=== PATIENT | female | born 1960 | race Caucasian/White ===

== ENCOUNTER 2023-07-11 11:11 | Emergency (ER) | payer OTHER ==
[~2023-07-11] VITALS: Ht 162.6 cm; Wt 53.1 kg
[2023-07-11] MEDS ORDERED: KETOROLAC TROMETHAMINE INJ 30 MG/ML VIAL ONE (11:42)
[2023-07-11] MEDS ORDERED: KETOROLAC TROMETHAMINE INJ 60 MG/2 ML VIAL IM ONE (12:00)
[2023-07-11 13:14] VITALS: BP 141/70; TEMP 98; O2SAT 98
== END 2023-07-11 13:14 | disposition home or self-care (01) ==
LOC: ER 11:18
DX: M25.552 Pain in left hip (principal); M25.551 Pain in right hip; J45.909 Unspecified asthma, uncomplicated; Z98.890 Other specified postprocedural states; Z88.2 Allergy status to sulfonamides; Z88.5 Allergy status to narcotic agent; Z88.1 Allergy status to other antibiotic agents
CPT/HCPCS: 99285; 72192; 96372; J1885

== ENCOUNTER 2023-09-21 10:04 | Emergency (ER) | payer OTHER ==
[~2023-09-21] VITALS: Ht 162.6 cm; Wt 56.7 kg
[2023-09-21] MEDS ORDERED: GABA600T12 PO (12:19)
[2023-09-21] MEDS ORDERED: LEVA15HF4 IH (12:19)
[2023-09-21] MEDS ORDERED: DULO60CA45 PO (12:19)
[2023-09-21] MEDS ORDERED: FLUT100D IH (12:19)
[2023-09-21] MEDS ORDERED: ARIP5TAB10 PO (12:19)
[2023-09-21] MEDS ORDERED: HYDR-500 PO (12:19)
[2023-09-21] MEDS ORDERED: QUET50TA PO (12:19)
[2023-09-21] MEDS ORDERED: PAXLOVID PO (12:19)
[2023-09-21] MEDS ORDERED: GABA300C PO (12:19)
[2023-09-21] MEDS ORDERED: TRAM50TA2 PO (12:19)
[2023-09-21 12:33] LABS: BASOPHILS # (AUTO) 0.1 K/uL (0.0-0.2); BASOPHILS % (AUTO) 0.4 % (0.0-2.0); EOSINOPHILS # (AUTO) 0.1 K/uL (0.0-0.7); EOSINOPHILS % (AUTO) 0.8 % (0.0-6.0); HEMATOCRIT 40 % (33-45); HEMOGLOBIN 13.2 g/dL (11.5-14.8); LYMPHOCYTES # (AUTO) 1.1 K/uL (0.8-4.8); LYMPHOCYTES % (AUTO) 9.4 % (20.0-44.0); MEAN CORPUSCULAR HEMOGLOBIN 29 PG (26.0-33.0); MEAN CORPUSCULAR HGB CONC 33 g/dl (31.0-36.0); MEAN CORPUSCULAR VOLUME 89 fL (82-100); MONOCYTES # (AUTO) 0.7 K/uL (0.1-1.30); MONOCYTES % (AUTO) 5.6 % (2.0-12.0); NEUTROPHILS # (AUTO) 9.8 K/uL (1.8-8.9); NEUTROPHILS % (AUTO) 83.8 % (43.0-81.0); PLATELET COUNT (AUTO) 462 K/uL (150-450); RED BLOOD CELL COUNT(AUTO) 4.51 MIL/uL (4.0-5.2); RED CELL DISTRIBUTION WIDTH 13.7 % (11.5-15.0); WHITE BLOOD COUNT (AUTO) 11.7 K/uL (4.3-11.0)
[2023-09-21 12:48] LABS: CALCIUM, SERUM 9.7 mg/dL (8.5-10.1); CARBON DIOXIDE 25 mmol/L (21-32); CHLORIDE 100 mmol/L (98-107); GLUCOSE 96 mg/dL (74-106); POTASSIUM 3.7 mmol/L (3.5-5.1); SODIUM SERUM 136 mmol/L (136-145); UREA NITROGEN, BLOOD 21 mg/dL (7-18)
[2023-09-21 13:05] LABS: ALANINE AMINOTRANSFERASE 28 U/L (12-78); ALBUMIN 4.1 g/dL (3.4-5.0); ALKALINE PHOSPHATASE 97 U/L (46-116); ASPARTATE AMINOTRANSFERASE 19 U/L (15-37); BILIRUBIN,TOTAL 0.6 mg/dL (0.2-1.0); NT-PRO BNP 79 pg/mL (0-125)
[2023-09-21 14:20] LABS: BILIRUBIN,DIRECT 0.1 mg/dL (0.0-0.2)
[2023-09-21 14:28] LABS: LACTIC ACID REFLEX 2.7 mmol/L (0.4-1.9)
[2023-09-21] MEDS ORDERED: CLINDAMYCIN 600 MG in IV D5W 100 ML IV ONE (15:00)
[2023-09-21] MEDS ORDERED: IV NS 0.9% 1,000 ML IV ONE (15:30)
[2023-09-21 17:23] LABS: APPEARANCE,URINE CLEAR (CLEAR); BILIRUBIN,URINE NEGATIVE (NEGATIVE); BLOOD, URINE NEGATIVE Ery/uL (NEGATIVE); COLOR,URINE YELLOW (YELLOW); KETONES,URINE NEGATIVE (NEGATIVE); LEUKOCYTE ESTERASE ,URINE NEGATIVE (NEGATIVE); NITRITE, URINE NEGATIVE (NEGATIVE); PH,URINE 6.5 (5.0-8.0); PROTEIN,URINE NEGATIVE (NEGATIVE); UGLUCOSE NEGATIVE (NEGATIVE); UROBILINOGEN,URINE 0.2 EU/dL (0.2)
[2023-09-21 19:09] VITALS: BP 140/75; TEMP 98.1; O2SAT 100
== END 2023-09-21 19:09 | disposition home or self-care (01) ==
LOC: ER 10:10 → TELE1 16:45 → UNDOADMIN 16:45 → UNDODISIN 19:08 → ER 19:09
DX: R06.00 Dyspnea, unspecified (principal); J45.909 Unspecified asthma, uncomplicated; Z90.89 Acquired absence of other organs; Z90.49 Acquired absence of other specified parts of digestive tract; Z88.0 Allergy status to penicillin; Z88.2 Allergy status to sulfonamides; Z88.8 Allergy status to other drugs, medicaments and biological substances; Z20.822 Contact with and (suspected) exposure to COVID-19
CPT/HCPCS: 99285; 96365; 71045; 93005; 82248; 85025; 87040; 85378; 81003; 36415; 80053; 84484; 83880; 83605 ×3; J3490; J7060; J7030; G0378

== ENCOUNTER 2023-10-05 09:50 | Emergency (ER) | payer OTHER ==
[~2023-10-05] VITALS: Ht 162.6 cm; Wt 56.7 kg
[~2023-10-05 09:50] MED LIST: ARIP5TAB10 PO; DULO60CA45 PO; FLUT100D IH; GABA300C PO; GABA600T12 PO; HYDR-500 PO; LEVA15HF4 IH; PAXLOVID PO; QUET50TA PO; TRAM50TA2 PO
[2023-10-05 10:39] LABS: BASOPHILS # (AUTO) 0.1 K/uL (0.0-0.2); BASOPHILS % (AUTO) 0.5 % (0.0-2.0); EOSINOPHILS # (AUTO) 0.2 K/uL (0.0-0.7); HEMATOCRIT 40 % (33-45); HEMOGLOBIN 13.1 g/dL (11.5-14.8); LYMPHOCYTES # (AUTO) 0.9 K/uL (0.8-4.8); LYMPHOCYTES % (AUTO) 9.1 % (20.0-44.0); MEAN CORPUSCULAR HEMOGLOBIN 29 PG (26.0-33.0); MEAN CORPUSCULAR HGB CONC 33 g/dl (31.0-36.0); MEAN CORPUSCULAR VOLUME 88 fL (82-100); MONOCYTES # (AUTO) 0.5 K/uL (0.1-1.30); MONOCYTES % (AUTO) 4.7 % (2.0-12.0); NEUTROPHILS # (AUTO) 8.3 K/uL (1.8-8.9); NEUTROPHILS % (AUTO) 83.7 % (43.0-81.0); PLATELET COUNT (AUTO) 310 K/uL (150-450); RED BLOOD CELL COUNT(AUTO) 4.49 MIL/uL (4.0-5.2); WHITE BLOOD COUNT (AUTO) 9.9 K/uL (4.3-11.0)
[2023-10-05 10:53] LABS: INR 0.99 (0.91-1.10); PARTIAL THROMBOPLASTIN TIME 26.8 SEC (24.3-34.3); PROTHROMBIN TIME 10.5 SECS (9.2-11.1)
[2023-10-05 11:04] LABS: ALANINE AMINOTRANSFERASE 32 U/L (12-78); ALBUMIN 3.9 g/dL (3.4-5.0); ALKALINE PHOSPHATASE 100 U/L (46-116); ASPARTATE AMINOTRANSFERASE 15 U/L (15-37); BILIRUBIN,DIRECT 0.1 mg/dL (0.0-0.2); BILIRUBIN,TOTAL 0.3 mg/dL (0.2-1.0); CALCIUM, SERUM 9.7 mg/dL (8.5-10.1); CARBON DIOXIDE 28 mmol/L (21-32); CHLORIDE 103 mmol/L (98-107); CREATININE 0.9 mg/dL (0.6-1.3); GLUCOSE 116 mg/dL (74-106); POTASSIUM 3.9 mmol/L (3.5-5.1); SODIUM SERUM 140 mmol/L (136-145); TOTAL PROTEIN, SERUM 7.7 g/dL (6.4-8.2); UREA NITROGEN, BLOOD 21 mg/dL (7-18)
[2023-10-05 12:45] VITALS: BP 120/69; TEMP 97.8; O2SAT 97
== END 2023-10-05 12:54 | disposition home or self-care (01) ==
LOC: ER 09:50
DX: R42 Dizziness and giddiness (principal); R53.1 Weakness; J45.909 Unspecified asthma, uncomplicated; Z79.899 Other long term (current) drug therapy; Z98.890 Other specified postprocedural states; Z88.2 Allergy status to sulfonamides; Z88.5 Allergy status to narcotic agent
CPT/HCPCS: 36415; 70450-TC; 71045-TC; 80048-TC; 80076-TC; 84484-TC; 85025-TC; 85730-TC

== ENCOUNTER 2023-12-18 12:17 | Inpatient (IN) | payer OTHER ==
[~2023-12-18] VITALS: Ht 162.6 cm; Wt 56.7 kg
[2023-12-18 14:08] LABS: BASOPHILS # (AUTO) 0.1 K/uL (0.0-0.2); BASOPHILS % (AUTO) 0.7 % (0.0-2.0); EOSINOPHILS # (AUTO) 0.1 K/uL (0.0-0.7); EOSINOPHILS % (AUTO) 0.8 % (0.0-6.0); HEMATOCRIT 42 % (33-45); HEMOGLOBIN 13.3 g/dL (11.5-14.8); LYMPHOCYTES % (AUTO) 8.8 % (20.0-44.0); MEAN CORPUSCULAR HEMOGLOBIN 29 PG (26.0-33.0); MEAN CORPUSCULAR HGB CONC 32 g/dl (31.0-36.0); MEAN CORPUSCULAR VOLUME 89 fL (82-100); MONOCYTES # (AUTO) 0.7 K/uL (0.1-1.30); MONOCYTES % (AUTO) 6.3 % (2.0-12.0); NEUTROPHILS # (AUTO) 9.2 K/uL (1.8-8.9); NEUTROPHILS % (AUTO) 83.4 % (43.0-81.0); PLATELET COUNT (AUTO) 380 K/uL (150-450); RED BLOOD CELL COUNT(AUTO) 4.66 MIL/uL (4.0-5.2); RED CELL DISTRIBUTION WIDTH 13.8 % (11.5-15.0); WHITE BLOOD COUNT (AUTO) 11.1 K/uL (4.3-11.0)
[2023-12-18 14:24] LABS: CALCIUM, SERUM 9.9 mg/dL (8.5-10.1); CREATININE 0.9 mg/dL (0.6-1.3); POTASSIUM 4.2 mmol/L (3.5-5.1)
[2023-12-18 14:26] LABS: ALCOHOL, BLOOD < 3 mg/dL (0-10)
[2023-12-18 14:27] LABS: ACETAMINOPHEN <10 ug/ml (10-30)
[2023-12-18 14:30] LABS: ALBUMIN 4.1 g/dL (3.4-5.0); BILIRUBIN,DIRECT 0.1 mg/dL (0.0-0.2); BILIRUBIN,TOTAL 0.5 mg/dL (0.2-1.0); TOTAL PROTEIN, SERUM 7.7 g/dL (6.4-8.2)
[2023-12-18] MEDS: IV NS 0.9% 1,000 ML BAG IV ONE (14:30)
[2023-12-18] MEDS ORDERED: MAG HYDROX/AL HYDROX/SIMETH 30 ML UDC PO PRN (15:30)
[2023-12-18] MEDS ORDERED: MAGNESIUM HYDROXIDE 30 ML UDC PO PRN (15:30)
[2023-12-18] MEDS ORDERED: HYDROCODONE/APAP 5/325MG TABLET PO PRN (15:30)
[2023-12-18] MEDS ORDERED: ONDANSETRON HCL/PF 4 MG/2 ML VIAL IVP PRN (15:30)
[2023-12-18] MEDS ORDERED: Z GUARD REMEDY 4 OZ OINT TP PRN (15:30)
[2023-12-18] MEDS ORDERED: ACETAMINOPHEN 325 MG TABLET PO PRN (15:30)
[2023-12-18] MEDS ORDERED: ESZO3TAB27 PO (15:47)
[2023-12-18] MEDS ORDERED: MECLIZINE HCL 25 MG TABLET ONE (15:59)
[2023-12-18] MEDS: MECLIZINE HCL 25 MG TABLET PO SCH (16:03)
[2023-12-18 17:29] VITALS: BP 154/74; TEMP 97.9; O2SAT 98
[2023-12-18] MEDS ORDERED: ACET-73 PO (17:34)
[2023-12-18] MEDS ORDERED: LANS30CA54 PO (17:34)
[2023-12-18] MEDS: IV NS 0.9% 1,000 ML IV PRN (17:56)
[2023-12-18 20:00] VITALS: BP 130/66; TEMP 98.2; O2SAT 97
[2023-12-18] MEDS: ENOXAPARIN SODIUM 40 MG/0.4 ML DISP.SYRIN SQ SCH (20:52)
[2023-12-18] MEDS: ZOLPIDEM TARTRATE 5 MG TABLET PO PRN (21:35)
[2023-12-19] VITALS: BP 106/63; TEMP 98.6; O2SAT 96
[2023-12-19 04:00] VITALS: BP 113/71; TEMP 98.4; O2SAT 98
[2023-12-19 07:00] LABS: BASOPHILS % (AUTO) 0.2 % (0.0-2.0); EOSINOPHILS # (AUTO) 0.2 K/uL (0.0-0.7); EOSINOPHILS % (AUTO) 1.7 % (0.0-6.0); HEMATOCRIT 38 % (33-45); HEMOGLOBIN 12.8 g/dL (11.5-14.8); LYMPHOCYTES # (AUTO) 1.5 K/uL (0.8-4.8); LYMPHOCYTES % (AUTO) 13.6 % (20.0-44.0); MEAN CORPUSCULAR HEMOGLOBIN 30 PG (26.0-33.0); MEAN CORPUSCULAR HGB CONC 34 g/dl (31.0-36.0); MEAN CORPUSCULAR VOLUME 89 fL (82-100); MONOCYTES # (AUTO) 0.7 K/uL (0.1-1.30); MONOCYTES % (AUTO) 6.3 % (2.0-12.0); NEUTROPHILS # (AUTO) 8.3 K/uL (1.8-8.9); NEUTROPHILS % (AUTO) 78.2 % (43.0-81.0); PLATELET COUNT (AUTO) 367 K/uL (150-450); RED BLOOD CELL COUNT(AUTO) 4.29 MIL/uL (4.0-5.2); RED CELL DISTRIBUTION WIDTH 13.7 % (11.5-15.0); WHITE BLOOD COUNT (AUTO) 10.6 K/uL (4.3-11.0)
[2023-12-19] MEDS ORDERED: PANTOPRAZOLE 40 MG TABLET.DR PO SCH ×2 (07:30)
[2023-12-19 07:31] LABS: CALCIUM, SERUM 9.5 mg/dL (8.5-10.1); CREATININE 0.7 mg/dL (0.6-1.3); MAGNESIUM 2.2 mg/dL (1.8-2.4); PHOSPHORUS 3.4 mg/dL (2.5-4.9); POTASSIUM 4.1 mmol/L (3.5-5.1)
[2023-12-19 08:00] VITALS: BP 126/63; TEMP 98.4; O2SAT 97
[2023-12-19 09:04] LABS: C-REACTIVE PROTEIN < 0.20 mg/dL (0.0-0.30); THYROID STIMULATING HORMONE 1.213 uIU/mL (0.358-3.74)
[2023-12-19] MEDS ORDERED: ACETAMINOPHEN ES 500 MG TABLET PO PRN (11:00)
[2023-12-19] MEDS: ARIPIPRAZOLE 5 MG TABLET PO SCH (11:21)
[2023-12-19] MEDS ORDERED: ALBUTEROL FS 2.5 MG/0.5 ML VIAL.NEB NEB PRN (11:30)
[2023-12-19 12:00] VITALS: BP 130/65; TEMP 98.2; O2SAT 97
[2023-12-19] MEDS: GABAPENTIN 300 MG CAPSULE PO SCH (12:44)
[2023-12-19] MEDS ORDERED: GABAPENTIN 300 MG CAPSULE PO SCH (13:00)
[2023-12-19] MEDS: TRAMADOL HCL 50 MG TABLET PO PRN (13:19)
[2023-12-19 16:00] VITALS: BP 124/67; TEMP 98.6; O2SAT 97
[2023-12-19] MEDS: LORAZEPAM INJ 2 MG/ML VIAL IV PRN (16:26)
[2023-12-19] MEDS: DULOXETINE HCL 30 MG CAPSULE.DR PO SCH (16:26)
[2023-12-19] MEDS: ASPIRIN 81 MG TAB.CHEW PO SCH (18:26)
[2023-12-19 20:00] VITALS: BP 125/80; TEMP 99.3; O2SAT 97
[2023-12-19] MEDS ORDERED: LUNESTA 3 MG PO SCH (22:00)
[2023-12-20] VITALS: BP 104/55; TEMP 98.6; O2SAT 97
[2023-12-20 04:00] VITALS: O2SAT 97
[2023-12-20 08:00] VITALS: BP 115/69; TEMP 98.2; O2SAT 97
[2023-12-20 09:08] LABS: FOLIC ACID 16.6 ng/mL (>3.0)
[2023-12-20] MEDS ORDERED: GADOTERATE MEGLUMINE 10 MMOL/20 ML VIAL IV ONE (11:01)
[2023-12-20 11:12] LABS: *ANA ANTI-CENTROMERE B AB <0.2 AI (0.0-0.9); *ANA ANTI-DNA(DS) AB, QN <1 IU/mL (0-9); *ANA ANTI-JO-1 <0.2 AI (0.0-0.9); *ANA ANTICHROMATIN ANTIBODY <0.2 AI (0.0-0.9); *ANA RNP ANTIBODIES 0.6 AI (0.0-0.9); *ANA SJOGREN'S ANTI-SS-A <0.2 AI (0.0-0.9); *ANA SJOGREN'S ANTI-SS-B <0.2 AI (0.0-0.9); *ANAANTI-SCLERODERMA-70 AB <0.2 AI (0.0-0.9); *ANASMITH AB <0.2 AI (0.0-0.9)
[2023-12-20 12:00] VITALS: BP 115/69; TEMP 98.2; O2SAT 97
[2023-12-20 16:00] VITALS: BP 117/81; TEMP 98.6; O2SAT 97
[2023-12-20] MEDS: ARIPIPRAZOLE 5 MG TABLET PO SCH (16:33)
[2023-12-20 20:00] VITALS: BP 117/81; TEMP 98.6; O2SAT 97
[2023-12-20] MEDS: FAMOTIDINE (20 MG) 20 MG TABLET PO SCH (20:40)
[2023-12-21 04:00] VITALS: BP 121/75; TEMP 97.9; O2SAT 97
[2023-12-21] MEDS ORDERED: MECL-159 PO (07:58)
[2023-12-21 12:00] VITALS: BP 121/77; TEMP 97.7; O2SAT 96
== END 2023-12-21 14:11 | disposition home or self-care (01) | DRG 149 ==
LOC: ER 12:20 → TELE1 16:34 → MEDSG1 12-20 08:15
PROVIDERS: ATTEND Nurse Practitioner Acute Care
DX: H81.10 Benign paroxysmal vertigo, unspecified ear (principal); F33.2 Major depressive disorder, recurrent severe without psychotic features; M81.0 Age-related osteoporosis without current pathological fracture; G62.9 Polyneuropathy, unspecified; J45.909 Unspecified asthma, uncomplicated; Z87.19 Personal history of other diseases of the digestive system; Z90.49 Acquired absence of other specified parts of digestive tract; Z98.890 Other specified postprocedural states; Z88.1 Allergy status to other antibiotic agents; Z88.5 Allergy status to narcotic agent; Z88.2 Allergy status to sulfonamides; Z88.8 Allergy status to other drugs, medicaments and biological substances; Z79.51 Long term (current) use of inhaled steroids; Z79.899 Other long term (current) drug therapy; Z88.0 Allergy status to penicillin; Z87.09 Personal history of other diseases of the respiratory system; G89.29 Other chronic pain; F06.4 Anxiety disorder due to known physiological condition; R79.89 Other specified abnormal findings of blood chemistry; G47.00 Insomnia, unspecified
CPT/HCPCS: 36415; 70450-TC; 70544-TC; 70547-TC; 70553-TC; 71045-TC; 80048-TC; 80076-TC; 82607-TC; 83735-TC; 83921; 84100-TC; 84439-TC; 84443-TC; 85025-TC; 85652-TC; 86140-TC; 86225; 86235; 93307-TC; 97110-TC; 97116-TC; A9575; G0378; G0480; J1650; J2060; J7030; J8597